=== PATIENT | female | born 1965 | race Two or more races ===

== ENCOUNTER 2018-07-24 21:12 | Inpatient (IN) | payer MEDICARE, OTHER, SELFPAY ==
[~2018-07-24] VITALS: Ht 154.9 cm; Wt 49.0 kg
[~2018-07-24 21:12] MED LIST: ARIP20TA PO; ATOR10TA84 PO; BENZ1TAB70 PO; HALO5TAB23 PO; INSLAN SQ; LISI10TA7 PO; METF1000 PO; PIOG30TA10 PO
[2018-07-24 22:17] LABS: BASOPHILS % (AUTO) 0.9 % (0.0-2.0); EOSINOPHILS % (AUTO) 1.3 % (1.0-6.0); HEMATOCRIT 37.7 % (36-46); HEMOGLOBIN 12.5 g/dL (12.0-16.0); LYMPHOCYTES # (AUTO) 1.2 K/uL (1.0-4.8); LYMPHOCYTES % (AUTO) 21.1 % (22.0-44.0); MEAN CORPUSCULAR HEMOGLOBIN 28.5 pg (26.0-34.0); MEAN CORPUSCULAR HGB CONC 33.1 G/dL (31.0-37.0); MEAN CORPUSCULAR VOLUME 86 fL (80-100); MONOCYTES # (AUTO) 0.4 K/uL (0.1-1.0); MONOCYTES % (AUTO) 6.6 % (2.0-9.0); NEUTROPHILS # (AUTO) 3.9 K/uL (1.8-7.7); NEUTROPHILS % (AUTO) 70.1 % (40.0-70.0); PLATELET COUNT (AUTO) 321 K/uL (150-450); RED BLOOD CELL COUNT(AUTO) 4.38 MIL/uL (4.00-5.20); RED CELL DISTRIBUTION WIDTH 13.2 % (11.5-14.5)
[2018-07-24 22:34] LABS: GLUCOSE,POINT OF CARE > 600 MG/DL (70-110)
[2018-07-24 22:34] LABS: AMPHET/METH SCREEN,URINE NEGATIVE (NEGATIVE); BARBITURATE SCREEN, URINE NEGATIVE (NEGATIVE); BENZODIAZEPINES SCREEN,URINE NEGATIVE (NEGATIVE); CANNABINOID SCREEN,URINE NEGATIVE (NEGATIVE); COCAINE SCREEN,URINE NEGATIVE (NEGATIVE); METHADONE SCREEN, URINE NEGATIVE (NEGATIVE); OPIATE SCREEN,URINE NEGATIVE (NEGATIVE)
[2018-07-24 22:36] LABS: ALANINE AMINOTRANSFERASE 41 U/L (12-78); ALKALINE PHOSPHATASE 99 U/L (46-116); ANION GAP 13 mmol/L (8-16); ASPARTATE AMINOTRANSFERASE 28 U/L (15-37); BILIRUBIN,TOTAL 0.3 mg/dL (0.1-1.0); CALCIUM, TOTAL 9.4 mg/dL (8.8-10.5); CARBON DIOXIDE 25 mmol/L (22-29); CHLORIDE 95 mmol/L (98-107); CREATININE 1.12 mg/dL (0.60-1.30); GLOMERULAR FILTR. RATE CALC 51 mL/min (>60); POTASSIUM 4.3 mmol/L (3.5-5.1); SODIUM SERUM 133 mmol/L (136-145); TOTAL PROTEIN, SERUM 9.1 g/dL (6.4-8.2); UREA NITROGEN, BLOOD 21 mg/dL (7-18)
[2018-07-24 22:40] LABS: PHENCYCLIDINE SCREEN,URINE NEGATIVE (NEGATIVE)
[2018-07-24] MEDS ORDERED: SODIUM CHLORIDE 0.9% 1,000 ML IV ONE ×2 (22:40→23:45)
[2018-07-24 22:42] LABS: GLUCOSE,RANDOM 704 mg/dL (70-110)
[2018-07-24 23:00] LABS: APPEARANCE,URINE CLEAR (CLEAR); BILIRUBIN,URINE NEGATIVE (NEGATIVE); GLUCOSE, URINE (UA) >=1000 mg/dL (NEGATIVE); KETONES,URINE 40 mg/dL (NEGATIVE); LEUKOCYTE ESTERASE ,URINE NEGATIVE (NEGATIVE); NITRATE,URINE POSITIVE (NEGATIVE); OCCULT BLOOD,URINE NEGATIVE (NEGATIVE); PROTEIN,URINE NEGATIVE (NEGATIVE); UROBILINOGEN,URINE 0.2 mg/dL (<=1.0)
[2018-07-24 23:08] LABS: BACTERIA,URINE Moderate /HPF (None Seen); RBC,URINE 0-2 /HPF (0-2); SQUAMOUS EPITHELIAL CELL,UR Few /LPF (None Seen)
[2018-07-24] MEDS: SODIUM CHLORIDE 0.9% 1,450 ML IV ONE ×2 (23:33→23:49)
[2018-07-25] MEDS ORDERED: SODIUM CHLORIDE 0.9% 1,000 ML IV ONE ×2
[2018-07-25] MEDS ORDERED: ACETAMINOPHEN 325 MG TABLET PO PRN ×2
[2018-07-25] MEDS ORDERED: 0.9% SODIUM CHLORIDE 10 ML SYRINGE IVP PRN
[2018-07-25] MEDS ORDERED: BISACODYL 10 MG RECTAL RECTAL SUPPOSITORY PR PRN
[2018-07-25] MEDS ORDERED: ZOLPIDEM TARTRATE 5 MG TABLET PO PRN
[2018-07-25] MEDS ORDERED: HYDROCODONE/ACETAMINOPHEN 5-325 MG TABLET PO PRN
[2018-07-25] MEDS ORDERED: MORPHINE SULFATE 2 MG/ML SYRINGE IVP PRN
[2018-07-25] MEDS ORDERED: DEXTROSE 50%-WATER 25 GM/50 ML SYRINGE IVP PRN
[2018-07-25] MEDS ORDERED: MAGNESIUM HYDROXIDE SUSPENSION 30 ML UDCUP PO PRN
[2018-07-25] MEDS ORDERED: INSULIN REGULAR, HUMAN 100 UNITS/ML IVP ONE
[2018-07-25] MEDS ORDERED: ONDANSETRON HCL 4 MG/2 ML VIAL IVP PRN ×2
[2018-07-25] MEDS: LORazepam 2 MG TABLET PO ONE ×2 (00:05→00:22)
[2018-07-25] MEDS: HALOPERIDOL 5 MG TABLET PO ONE ×2 (00:06→00:22)
[2018-07-25] MEDS: BENZTROPINE MESYLATE 2 MG TABLET PO ONE ×2 (00:06→00:22)
[2018-07-25] MEDS: HEPARIN SODIUM,PORCINE 5,000 UNITS/ML VIAL SQ SCH ×4 (00:30→23:36)
[2018-07-25 00:34] LABS: GLUCOSE,POINT OF CARE 444 MG/DL (70-110)
[2018-07-25 02:39] LABS: GLUCOSE,POINT OF CARE 371 MG/DL (70-110)
[2018-07-25 06:14] LABS: GLUCOSE,POINT OF CARE 305 MG/DL (70-110)
[2018-07-25 09:29] VITALS: BP 140/84
[2018-07-25] MEDS ORDERED: PNEUMOCOCCAL VACCINE POLYVALENT 0.5 ML VIAL [PPSV23] IM ONE (10:15)
[2018-07-25 11:02] VITALS: BP 142/78
[2018-07-25] MEDS: INSULIN LISPRO 100 UNITS/ML SQ PRN ×3 (11:20→20:30)
[2018-07-25] MEDS: DOCUSATE SODIUM 100 MG CAPSULE PO SCH ×2 (12:14→20:29)
[2018-07-25] MEDS: PIOGLITAZONE HCL 30 MG TABLET PO SCH (12:14)
[2018-07-25] MEDS: LISINOPRIL 10 MG TABLET PO SCH (12:15)
[2018-07-25] MEDS: ARIPiprazole 10 MG TABLET PO SCH (12:15)
[2018-07-25] MEDS: MetFORMIN HCL 500 MG TABLET PO SCH ×2 (12:15→18:27)
[2018-07-25] MEDS: PANTOPRAZOLE SODIUM 40 MG DR TABLET PO SCH (12:15)
[2018-07-25 15:08] VITALS: BP 138/76
[2018-07-25] MEDS ORDERED: SODIUM CHLORIDE 0.9% 250 ML IV ONE (15:39)
[2018-07-25] MEDS: CefTRIAXone 1 GM/DEXTROSE 50 ML IV SCH (15:54)
[2018-07-25 18:05] LABS: GLUCOMETER DEV NAME(LOC) 5N.2; GLUCOSE,POINT OF CARE 348 MG/DL (70-110)
[2018-07-25 18:05] LABS: GLUCOMETER DEV NAME(LOC) 5S.1; GLUCOSE,POINT OF CARE 344 MG/DL (70-110)
[2018-07-25 20:06] VITALS: BP 101/61
[2018-07-25] MEDS: ATORVASTATIN CALCIUM 10 MG TABLET PO SCH (20:29)
[2018-07-25] MEDS: BENZTROPINE MESYLATE 1 MG TABLET PO SCH (20:29)
[2018-07-25] MEDS: HALOPERIDOL 5 MG TABLET PO SCH (20:29)
[2018-07-25 20:59] LABS: GLUCOMETER DEV NAME(LOC) 5N.2; GLUCOSE,POINT OF CARE 345 MG/DL (70-110)
[2018-07-25] MEDS ORDERED: INSULIN GLARGINE,HUM.REC.ANLOG 100 UNITS/ML SQ SCH ×2 (21:00)
[2018-07-26 00:15] VITALS: BP 104/64
[2018-07-26 05:21] VITALS: BP 115/79
[2018-07-26 06:00] LABS: GLUCOMETER DEV NAME(LOC) 5N.2; GLUCOSE,POINT OF CARE 332 MG/DL (70-110)
[2018-07-26] MEDS: INSULIN LISPRO 100 UNITS/ML SQ PRN ×4 (06:13→20:08)
[2018-07-26 07:07] LABS: ANION GAP 10 mmol/L (8-16); CALCIUM, TOTAL 9.1 mg/dL (8.8-10.5); CARBON DIOXIDE 24 mmol/L (22-29); CHLORIDE 104 mmol/L (98-107); CREATININE 0.74 mg/dL (0.60-1.30); GLOMERULAR FILTR. RATE CALC > 60 mL/min (>60); GLUCOSE,RANDOM 334 mg/dL (70-110); POTASSIUM 4.2 mmol/L (3.5-5.1); SODIUM SERUM 138 mmol/L (136-145); UREA NITROGEN, BLOOD 18 mg/dL (7-18)
[2018-07-26] MEDS: PIOGLITAZONE HCL 30 MG TABLET PO SCH (07:54)
[2018-07-26] MEDS: DOCUSATE SODIUM 100 MG CAPSULE PO SCH ×3 (07:54→19:56)
[2018-07-26] MEDS: MetFORMIN HCL 500 MG TABLET PO SCH ×2 (07:54→17:29)
[2018-07-26] MEDS: ARIPiprazole 10 MG TABLET PO SCH (07:54)
[2018-07-26] MEDS: HEPARIN SODIUM,PORCINE 5,000 UNITS/ML VIAL SQ SCH ×3 (07:54→23:34)
[2018-07-26] MEDS: LISINOPRIL 10 MG TABLET PO SCH (07:54)
[2018-07-26] MEDS: PANTOPRAZOLE SODIUM 40 MG DR TABLET PO SCH (07:54)
[2018-07-26 08:07] VITALS: BP 117/84
[2018-07-26 12:00] VITALS: BP 131/83
[2018-07-26 14:09] LABS: GLUCOMETER DEV NAME(LOC) 5S.1; GLUCOSE,POINT OF CARE 246 MG/DL (70-110)
[2018-07-26] MEDS: CefTRIAXone 1 GM/DEXTROSE 50 ML IV SCH (16:21)
[2018-07-26 16:49] VITALS: BP 128/84
[2018-07-26 17:44] LABS: GLUCOMETER DEV NAME(LOC) 5S.1; GLUCOSE,POINT OF CARE 390 MG/DL (70-110)
[2018-07-26 19:56] VITALS: BP 114/72
[2018-07-26] MEDS: HALOPERIDOL 5 MG TABLET PO SCH (19:56)
[2018-07-26] MEDS: ATORVASTATIN CALCIUM 10 MG TABLET PO SCH (19:56)
[2018-07-26] MEDS: BENZTROPINE MESYLATE 1 MG TABLET PO SCH (19:56)
[2018-07-26] MEDS: INSULIN GLARGINE,HUM.REC.ANLOG 100 UNITS/ML SQ SCH (20:07)
[2018-07-26 21:00] LABS: GLUCOMETER DEV NAME(LOC) 5N.2; GLUCOSE,POINT OF CARE 151 MG/DL (70-110)
[2018-07-27 05:18] VITALS: BP 123/72
[2018-07-27] MEDS: INSULIN LISPRO 100 UNITS/ML SQ PRN ×4 (06:03→20:17)
[2018-07-27 06:49] LABS: GLUCOMETER DEV NAME(LOC) 5N.2; GLUCOSE,POINT OF CARE 316 MG/DL (70-110)
[2018-07-27 07:44] VITALS: BP 120/78
[2018-07-27] MEDS: MetFORMIN HCL 500 MG TABLET PO SCH ×2 (08:00→17:26)
[2018-07-27] MEDS: ARIPiprazole 10 MG TABLET PO SCH (08:00)
[2018-07-27] MEDS: PIOGLITAZONE HCL 30 MG TABLET PO SCH (08:00)
[2018-07-27] MEDS: PANTOPRAZOLE SODIUM 40 MG DR TABLET PO SCH (08:00)
[2018-07-27] MEDS: HEPARIN SODIUM,PORCINE 5,000 UNITS/ML VIAL SQ SCH ×3 (08:01→23:29)
[2018-07-27] MEDS: DOCUSATE SODIUM 100 MG CAPSULE PO SCH ×2 (08:01→20:14)
[2018-07-27] MEDS: LISINOPRIL 10 MG TABLET PO SCH (08:01)
[2018-07-27 11:18] VITALS: BP 128/80
[2018-07-27 14:43] VITALS: BP 132/63
[2018-07-27 15:09] LABS: GLUCOMETER DEV NAME(LOC) 5N.2; GLUCOSE,POINT OF CARE 197 MG/DL (70-110)
[2018-07-27] MEDS: CefTRIAXone 1 GM/DEXTROSE 50 ML IV SCH (16:11)
[2018-07-27 19:04] LABS: GLUCOMETER DEV NAME(LOC) 5N.2; GLUCOSE,POINT OF CARE 302 MG/DL (70-110)
[2018-07-27 20:01] VITALS: BP 144/77
[2018-07-27] MEDS: BENZTROPINE MESYLATE 1 MG TABLET PO SCH (20:13)
[2018-07-27] MEDS: HALOPERIDOL 5 MG TABLET PO SCH (20:13)
[2018-07-27] MEDS: ATORVASTATIN CALCIUM 10 MG TABLET PO SCH (20:13)
[2018-07-27] MEDS: INSULIN GLARGINE,HUM.REC.ANLOG 100 UNITS/ML SQ SCH (20:17)
[2018-07-27 21:44] LABS: GLUCOMETER DEV NAME(LOC) 5N.2; GLUCOSE,POINT OF CARE 185 MG/DL (70-110)
[2018-07-28 00:24] VITALS: BP 133/74
[2018-07-28 05:21] VITALS: BP 124/80
[2018-07-28 05:30] LABS: GLUCOMETER DEV NAME(LOC) 5N.2; GLUCOSE,POINT OF CARE 282 MG/DL (70-110)
[2018-07-28] MEDS: INSULIN LISPRO 100 UNITS/ML SQ PRN ×2 (06:04→11:45)
[2018-07-28 07:41] VITALS: BP 140/83
[2018-07-28] MEDS: HEPARIN SODIUM,PORCINE 5,000 UNITS/ML VIAL SQ SCH (08:00)
[2018-07-28] MEDS: ARIPiprazole 10 MG TABLET PO SCH (08:01)
[2018-07-28] MEDS: PANTOPRAZOLE SODIUM 40 MG DR TABLET PO SCH (08:01)
[2018-07-28] MEDS: LISINOPRIL 10 MG TABLET PO SCH (08:01)
[2018-07-28] MEDS: MetFORMIN HCL 500 MG TABLET PO SCH (08:01)
[2018-07-28] MEDS: PIOGLITAZONE HCL 30 MG TABLET PO SCH (08:01)
[2018-07-28] MEDS: DOCUSATE SODIUM 100 MG CAPSULE PO SCH (08:02)
[2018-07-28 11:25] VITALS: BP 115/62
[2018-07-28] MEDS ORDERED: CEPH500 PO (12:34)
[2018-07-28 19:12] LABS: GLUCOMETER DEV NAME(LOC) 5S.1; GLUCOSE,POINT OF CARE 322 MG/DL (70-110)
== END 2018-07-28 15:10 | disposition home or self-care (01) | DRG 638 ==
LOC: EMS 21:13 → 5N 07-25 04:24
PROVIDERS: ADMIT Internal Medicine; ATTEND Internal Medicine
DX: E13.00 Other specified diabetes mellitus with hyperosmolarity without nonketotic hyperglycemic-hyperosmolar coma (NKHHC) (principal); N39.0 Urinary tract infection, site not specified; I10 Essential (primary) hypertension; E78.5 Hyperlipidemia, unspecified; F29 Unspecified psychosis not due to a substance or known physiological condition; F31.9 Bipolar disorder, unspecified; Z79.899 Other long term (current) drug therapy
CPT/HCPCS: 87086; 96374; G0378; G0480; J0696; J1644; J1815; J2405; J7030; J7050